=== PATIENT | female | born 2005 | race Caucasian/White ===

== ENCOUNTER 2025-01-22 18:09 | Emergency (ER) | payer MEDICAID, SELFPAY ==
[2025-01-22 18:10] VITALS: BP 121/64; PULSE 80; RESP 18; TEMP 36.6; O2SAT 100; BMI 18.1
--- NOTE | 2025-01-22 18:24 | ED.RN ---
PT SEEN AT FOR A WOUND ON THE RIGHT BREAST. PT HAS HAD IT FOR A WEEK NOW. PAINFUL, RED, AND HOT TO TOUCH. PT PLACED ON MEDICATIONS FROM BUT DOES NOT FEEL LIKE IT HAS BEEN ANY BETTER. PT HAS HAD SOME NAUSEA AND LOW GRADE FEVER MEASURED AT HOME OF 100.0 F
--- NOTE | 2025-01-22 18:35 | EDS_ITS ---
HPI History of Present Illness Chief Complaint: Wound Check Informant: patient Onset/Context/Timing Onset: Weeks (1) Context: Gradual Onset Timing: Continuous Quality: Sharp Location: Right breast Worsened by: Palpation Relieved by: Nothing Narrative Narrative: Patient presents with right breast abscess that has been getting worse over the past week. Patient states she went to urgent care 4 days ago and was given prescriptions for Bactrim and Keflex. Patient states she has been taking these with no improvement. Patient describes her pain as sharp. Patient states it is worse with palpation. Patient denies any fevers or chills. Patient admits to some nausea but denies any vomiting. PFSH PFSH no medical history Home Medications ?Medication ?Instructions ?Recorded ?Last Taken ?Type NK 01/22/25 Unknown History Allergy/AdvReac Type Severity Reaction Status Date / Time No Known Allergies Allergy Verified 01/22/25 18:25 no surgical history Social History Smoking Status: Current every day smoker tobacco type: e-cigarettes ROS ROS ED Constitutional Constitutional ED: Denies chills or fever(s) Eyes Eyes: Denies blurry vision or change in vision ENT ENT ED: Denies rhinorrhea or sore throat Cardiovascular Cardiovascular: Denies chest pain or palpitations Respiratory/Chest Respiratory/Chest: Denies cough or dyspnea Gastrointestinal Gastrointestinal: Reports nausea; Denies vomiting Genitourinary Genitourinary ED: Denies dysuria or hematuria Musculoskeletal Musculoskeletal: Denies back pain or neck pain Integumentary Reports abscess; Denies rash Neurologic Neurologic: Denies headache(s) or weakness Allergic/Immunologic Allergic/Immunologic ED: Denies mouth swelling or urticaria EXAM Physical Exam Const Vital Signs: 01/22/25 18:10 Temperature 97.8 F Temperature Source Temporal Pulse Rate 80 Respiratory Rate 18 Blood Pressure 121/64 H Blood Pressure Mean 83 Pulse Ox 100 Oxygen Delivery Method Room Air Positive well nourished and well developed General Appearance ED: well developed and NAD HEENT Reports moist mucous membranes Neck supple and no JVD Skin Skin Narrative: Chaperoned breast exam reveal an abscess over the superior lateral quadrant of the right breast near the nipple and areola. There is some fluctuance. There is no active discharge or drainage noted. There is no axillary adenopathy. MDM MDM MDM Narrative Medical decision making narrative: Nicotine cessation was discussed. Marijuana cessation was discussed. Patient was advised of the need for incision and drainage. Informed verbal consent was obtained. Patient was given the option ask any further questions. Patient had no questions. The abscess area was cleaned and anesthetized with 1% lidocaine locally. A #15 blade scalpel was used to make a linear incision along the lateral margin of the abscess. A large amount of purulent drainage was expressed. Curved hemostats were used to break up loculations. The wound was irrigated with copious amounts of normal saline. The wound was left open. Patient was instructed to continue her antibiotics as prescribed. Patient was instructed to use warm compresses. Patient was instructed to follow-up with her primary care physician in 5 to 7 days. Patient was instructed to return if worse in any way. Patient understood and was agreeable with the plan. All questions were answered. Procedures Other Procedures Procedure(s): The area was cleaned with chlorhexidine prep. The area was anesthetized with 1% [plain lidocaine] locally. A small linear incision was made using an 15 blade scalpel. A large amount of purulent drainage was expressed. The wound was left open. Bacitracin dressing was applied. Patient tolerated the procedure well. Discharge Plan Triage Chief Complaint: Wound Check ED Provider: Ok Liao Dx/Rx/DC Orders Clinical Impression: Abscess of right breast, Nicotine vapor product user, Marijuana use Instructions: ED Abscess Incision And Drainage Prescriptions: No Action NK Print Language: Estonian Disposition Disposition: Home, Self Care
[2025-01-22] MEDS: Lidocaine 1% (20 ml mdv) 20 ML Vial INFILT (18:37)
== END 2025-01-22 19:10 | disposition home or self-care (01) ==
LOC: ED 19:08
PROVIDERS: Emergency Provider Emergency Medicine; Visit Provider Emergency Medicine
DX: N61.1 Abscess of the breast and nipple (principal); F12.90 Cannabis use, unspecified, uncomplicated; F17.290 Nicotine dependence, other tobacco product, uncomplicated
CPT/HCPCS: 10060; 99283